=== PATIENT | male | born 1945 | race Caucasian/White ===

== ENCOUNTER 2018-01-25 06:37 | Day surgery (SDC) | payer MEDICARE ==
[2018-01-25] VITALS (11 sets, daily range): BP systolic 117–172; BP diastolic 64–98
[~2018-01-25] VITALS: Ht 167.6 cm; Wt 72.6 kg
[2018-01-25] MEDS ORDERED: normal saline 1000ml 1,000 ML IV PRN (06:55)
[2018-01-25] MEDS ORDERED: LIDOcaine 1% (10mg/ml) 2ml vial ONE (07:16)
[2018-01-25 07:42] LABS: BASOPHILS % (AUTO) 0.7 % (0-1); EOSINOPHILS # (AUTO) 0.3 X10'3 (0-0.9); EOSINOPHILS % (AUTO) 4.2 % (0-6); HEMATOCRIT 45.3 % (42.0-52.0); LYMPHOCYTES # (AUTO) 1.6 X10'3 (1.1-4.8); LYMPHOCYTES % (AUTO) 23.8 % (21-51); MEAN CORPUSCULAR HEMOGLOBIN 29.4 PG (27.0-31.0); MEAN CORPUSCULAR HGB CONC 33.1 % (33.0-36.5); MEAN CORPUSCULAR VOLUME 88.8 FL (78-98); MEAN PLATELET VOLUME 8.5 FL (7.4-10.4); MONOCYTES # (AUTO) 0.4 X10'3 (0-0.9); MONOCYTES % (AUTO) 6.3 % (2-12); NEUTROPHILS # (AUTO) 4.4 X10'3 (1.8-7.7); PLATELET COUNT 258 X10'3 (140-440); RED BLOOD COUNT 5.09 X10'6 (4.70-6.10); RED CELL DISTRIBUTION WIDTH 13.6 % (11.5-14.5); WHITE BLOOD COUNT 6.7 X10'3 (4.5-11.0)
[2018-01-25] MEDS ORDERED: CLOP75TA15 PO (08:07)
[2018-01-25] MEDS ORDERED: ASPI81TA30 PO (08:07)
[2018-01-25] MEDS ORDERED: CARV-50 PO (08:07)
[2018-01-25] MEDS ORDERED: MULT-38 PO (08:07)
[2018-01-25] MEDS ORDERED: [UNRECOGNIZED DRUG - REMARK] (08:07)
[2018-01-25 08:20] LABS: PROTHROMBIN TIME 10.2 SECONDS (9.0-12.0)
[2018-01-25] MEDS ORDERED: iohexol 300mg/ml 100ml inj. ONE (08:26)
[2018-01-25] MEDS ORDERED: heparin 1,000 UNITS/NS 500ml 500 ML ONE (08:26)
[2018-01-25] MEDS ORDERED: midazolam 2 mg/2 ml injection ONE (08:26)
[2018-01-25] MEDS ORDERED: fentaNYL/PF 50MCG/1 ML 2ML syringe ONE (08:26)
[2018-01-25] MEDS ORDERED: LIDOcaine 1%/PF 5ML 10 MG/ML VIAL ONE (08:26)
[2018-01-25 09:02] LABS: ALBUMIN 4.4 G/DL (3.4-5.0); ANION GAP 10 (8-16); BLOOD UREA NITROGEN 14 MG/DL (7-18); BUN/CREATININE RATIO 13.5 (5.4-32.0); CALCIUM 9.6 MG/DL (8.5-10.1); CHLORIDE 102 MMOL/L (99-107); CREATININE 1.04 MG/DL (0.60-1.10); GLUCOSE 112 MG/DL (70-104); POTASSIUM 4.1 MMOL/L (3.5-5.1); SODIUM 140 MMOL/L (135-145); TOTAL CARBON DIOXIDE 28.4 MMOL/L (24-32); eGFR 70 ML/MIN
[2018-01-25] MEDS ORDERED: normal saline 1000ml 1,000 ML IV SCH (09:51)
[2018-01-25] MEDS ORDERED: pneumococcal 23-VAL P-sac vacc 25 mcg/0.5ml vial IMVAC ONE (15:20)
== END 2018-01-25 14:20 | disposition home or self-care (01) ==
LOC: SSTAY O 06:37
PROVIDERS: ATTEND Radiology Diagnostic Radiology
DX: I74.5 Embolism and thrombosis of iliac artery (principal); I70.293 Other atherosclerosis of native arteries of extremities, bilateral legs; I25.810 Atherosclerosis of coronary artery bypass graft(s) without angina pectoris; Z95.5 Presence of coronary angioplasty implant and graft; Z95.828 Presence of other vascular implants and grafts; Z87.891 Personal history of nicotine dependence; Z95.1 Presence of aortocoronary bypass graft; Z79.01 Long term (current) use of anticoagulants; Z79.82 Long term (current) use of aspirin; Z79.899 Other long term (current) drug therapy; Z98.890 Other specified postprocedural states
CPT/HCPCS: 36415; 37221; 80048; 85025; 85610; 99152; 99153; C1876; J1644; J2001; J2250; J3010; J3490; J7030; Q9967; A6219; C1725; C1760; C1769; C1894

== ENCOUNTER 2018-03-07 08:59 | Inpatient (IN) | payer MEDICARE | END 2018-03-08 17:10 | disposition home or self-care (01) | LOC: PAS IN 08:59 → MED 3N 03-08 14:23 → CICU 2S 15:35 | PROC: 041 Lower Arteries, Bypass (ICD-10-PCS; principal; 2018-03-07 11:56) | PROC: 04CL0ZZ Extirpation of Matter from Left Femoral Artery, Open Approach (ICD-10-PCS; 2018-03-07 11:56) | DX: I70.213 Atherosclerosis of native arteries of extremities with intermittent claudication, bilateral legs (principal) ==

== ENCOUNTER 2018-09-06 12:53 | Outpatient (CLI) | payer MEDICARE ==
[~2018-09-06 12:53] MED LIST: ASPI81TA30 PO; CARV3.12 PO; CHOL10002 PO; CLOP75TA15 PO; PANT-47 PO
== END 2018-09-06 23:59 | disposition home or self-care (01) ==
LOC: VAS 12:53
PROVIDERS: ATTEND Surgery
DX: I70.293 Other atherosclerosis of native arteries of extremities, bilateral legs (principal); Z87.891 Personal history of nicotine dependence; Z95.820 Peripheral vascular angioplasty status with implants and grafts
CPT/HCPCS: 93922; 93925

== ENCOUNTER 2019-02-01 08:17 | Outpatient (CLI) | payer MEDICARE | END 2019-02-01 23:59 | disposition home or self-care (01) | LOC: VAS 08:17 | PROVIDERS: ATTEND Surgery | DX: I73.89 Other specified peripheral vascular diseases (principal); Z79.82 Long term (current) use of aspirin; Z87.891 Personal history of nicotine dependence; Z95.1 Presence of aortocoronary bypass graft | CPT/HCPCS: 93922; 93925 ==

== ENCOUNTER 2019-04-04 07:43 | Outpatient (CLI) | payer MEDICARE ==
[2019-04-04 09:01] LABS: BASOPHILS % (AUTO) 0.8 % (0-1); EOSINOPHILS # (AUTO) 0.2 X10'3 (0-0.9); EOSINOPHILS % (AUTO) 2.7 % (0-6); HEMATOCRIT 42.4 % (42.0-52.0); HEMOGLOBIN 14.4 g/dl (14.0-17.9); LYMPHOCYTES # (AUTO) 1.6 X10'3 (1.1-4.8); LYMPHOCYTES % (AUTO) 26.4 % (21-51); MEAN CORPUSCULAR HEMOGLOBIN 29.6 PG (27.0-31.0); MEAN CORPUSCULAR VOLUME 87.1 FL (78-98); MEAN PLATELET VOLUME 8.7 FL (7.4-10.4); MONOCYTES # (AUTO) 0.4 X10'3 (0-0.9); MONOCYTES % (AUTO) 6.7 % (2-12); NEUTROPHILS # (AUTO) 3.8 X10'3 (1.8-7.7); NEUTROPHILS % (AUTO) 63.4 % (42-75); PLATELET COUNT 232 X10'3 (140-440); RED BLOOD COUNT 4.86 X10'6 (4.70-6.10); RED CELL DISTRIBUTION WIDTH 13.8 % (11.5-14.5); WHITE BLOOD COUNT 5.9 X10'3 (4.5-11.0)
[2019-04-04 09:21] LABS: ALANINE AMINOTRANSFERASE 46 U/L (12-78); ALBUMIN 4.2 G/DL (3.4-5.0); ALBUMIN/GLOBULIN RATIO 1.2 (1.1-1.5); ALKALINE PHOSPHATASE 66 IU/L (46-116); ANION GAP 6 (8-16); ASPARTATE AMINO TRANSFERASE 24 U/L (10-37); BILIRUBIN,TOTAL 0.4 MG/DL (0.1-1.0); BLOOD UREA NITROGEN 26 MG/DL (7-18); CALCIUM 9.4 MG/DL (8.5-10.1); CHLORIDE 107 MMOL/L (99-107); CHOL/HDL RATIO 4.7 (0.00-4.99); CHOLESTEROL 224 MG/DL (0-200); CREATININE 1.04 MG/DL (0.60-1.10); GLUCOSE 112 MG/DL (70-104); HDL CHOLESTEROL 48 MG/DL (35-60); LDL CHOLESTEROL 159 MG/DL (50-100); MAGNESIUM 1.9 MG/DL (1.5-2.4); POTASSIUM 4.3 MMOL/L (3.5-5.1); SODIUM 143 MMOL/L (135-145); TOTAL CARBON DIOXIDE 30.3 MMOL/L (24-32); TOTAL PROTEIN 7.7 G/DL (6.4-8.2); TRIGLYCERIDES 72 MG/DL (20-135); eGFR 70 ML/MIN
== END 2019-04-04 23:59 | disposition home or self-care (01) ==
LOC: LAB 07:43
DX: E78.5 Hyperlipidemia, unspecified (principal); I25.10 Atherosclerotic heart disease of native coronary artery without angina pectoris; I73.9 Peripheral vascular disease, unspecified; Z79.899 Other long term (current) drug therapy
CPT/HCPCS: 36415; 80053; 80061; 82306; 83036; 83735; 84439; 84443; 85025

== ENCOUNTER 2019-08-05 08:12 | Outpatient (CLI) | payer MEDICARE | END 2019-08-05 23:59 | disposition home or self-care (01) | LOC: VAS 08:12 | PROVIDERS: ATTEND Surgery | DX: I73.9 Peripheral vascular disease, unspecified (principal); I70.201 Unspecified atherosclerosis of native arteries of extremities, right leg | CPT/HCPCS: 93922; 93925 ==

== ENCOUNTER 2019-10-30 08:27 | Inpatient (IN) | payer MEDICARE ==
[2019-10-23 14:55] LABS: BASOPHILS # (AUTO) 0.1 X10'3 (0-0.2); BASOPHILS % (AUTO) 1.1 % (0-1); EOSINOPHILS # (AUTO) 0.4 X10'3 (0-0.9); LYMPHOCYTES # (AUTO) 1.6 X10'3 (1.1-4.8); LYMPHOCYTES % (AUTO) 24.7 % (21-51); MEAN CORPUSCULAR HEMOGLOBIN 29.2 PG (27.0-31.0); MEAN CORPUSCULAR HGB CONC 33.3 g/dL (33.0-36.5); MEAN CORPUSCULAR VOLUME 87.7 FL (78-98); MEAN PLATELET VOLUME 9.1 FL (7.4-10.4); MONOCYTES # (AUTO) 0.5 X10'3 (0-0.9); MONOCYTES % (AUTO) 7.5 % (2-12); NEUTROPHILS # (AUTO) 3.9 X10'3 (1.8-7.7); NEUTROPHILS % (AUTO) 60.7 % (42-75); PRE OP HEMATOCRIT 41.7 % (42.0-52.0); PRE OP HEMOGLOBIN 13.9 g/dL (14.0-17.9); PRE OP PLATELET COUNT 214 X10'3 (140-440); RED BLOOD COUNT 4.75 X10'6 (4.70-6.10)
[2019-10-23 14:56] LABS: CLARITY,URINE CLEAR (Clear); COLOR,URINE YELLOW (Yellow); GLUCOSE, URINE NEGATIVE (Neg); KETONES,URINE NEGATIVE (Neg); LEUKOCYTE ESTERASE ,URINE NEGATIVE (Neg); NITRITES, URINE NEGATIVE (Neg); OCCULT BLOOD,URINE SMALL (Neg); PH,URINE 5.5 (4.8-8.0); PROTEIN,URINE NEGATIVE (Neg); UROBILINOGEN,URINE 0.2 E.U/dL (0.2-1.0)
[2019-10-23 15:03] LABS: PRE OP PROTIME 10.8 SECONDS (9.0-12.0)
[2019-10-23 15:05] LABS: UA COLLECTION TYPE CLN CATCH MIDSTREAM
[2019-10-23 15:06] LABS: ALBUMIN 3.9 G/DL (3.4-5.0); ALBUMIN/GLOBULIN RATIO 1.1 (1.1-1.5); ALKALINE PHOSPHATASE 62 IU/L (46-116); BLOOD UREA NITROGEN 17 MG/DL (7-18); BUN/CREATININE RATIO 17.9 (5.4-32.0); CALCIUM 9.1 MG/DL (8.5-10.1); CHLORIDE 105 MMOL/L (99-107); CREATININE 0.95 MG/DL (0.60-1.10); PRE OP ALT 25 U/L (30-65); PRE OP ANION GAP 6 (8-16); PRE OP AST 17 U/L (10-37); PRE OP BILIRUB, TOTAL 0.2 MG/DL (0.0-1.0); PRE OP GLUCOSE 87 MG/DL (70-104); PRE OP POTASSIUM 3.8 MMOL/L (3.4-5.1); PRE OP SODIUM 140 MMOL/L (135-145); TOTAL CARBON DIOXIDE 28.7 MMOL/L (24-32); TOTAL PROTEIN 7.4 G/DL (6.4-8.2); eGFR 78 ML/MIN
[2019-10-23 15:07] LABS: RBC,URINE 0-2 /HPF (0-2); SQUAMOUS EPITHELIAL CELL,UR FEW /LPF (FEW); WBC,URINE NONE SEEN /HPF (0-4)
[2019-10-23 15:08] LABS: BACTERIA,URINE NONE SEEN /HPF (Neg)
[2019-10-30] VITALS (20 sets, daily range): BP systolic 107–151; BP diastolic 56–82
[~2019-10-30] VITALS: Ht 170.2 cm; Wt 70.3 kg
[~2019-10-30 08:27] MED LIST changes: +DOCUMENT DATE & TIME OF BETA-BLOCKER PO ONE; +ESOM40CA43 PO; -PANT-47 PO; +cefazolin/dext.iso 2gm/50ml 50 ML IV ONE; +famotidine 20mg tablet PO ONE
[2019-10-30] MEDS ORDERED: LIDOcaine 1% (10mg/ml) 2ml vial ONE ×2 (09:08→12:01)
[2019-10-30] MEDS: ringers solution, lacted 1,000 ML IV SCH ×2 (09:13→17:10)
--- NOTE | 2019-10-30 09:30 | NUR ---
COVID SCREEN NEGATIVE, PT HAS NO COVID SYMPTOMS.
[2019-10-30] MEDS ORDERED: ringers solution, lacted 1,000 ML IV SCH (10:56)
[2019-10-30] MEDS ORDERED: morphine 2 MG/ML inj. syringe IV PRN (11:00)
[2019-10-30] MEDS ORDERED: meperidine/PF 25mg/ml syringe IV PRN ×3 (11:00)
[2019-10-30] MEDS ORDERED: morphine 4 MG/ML inj SYRINge IV PRN (11:00)
[2019-10-30] MEDS ORDERED: proCHLORperazine 10 MG/2 ml inj IV PRN (11:00)
[2019-10-30] MEDS ORDERED: ondansetron/PF 4mg/2ml inj IV PRN ×3 (11:00→14:45)
[2019-10-30] MEDS ORDERED: heparin 10,000 units/1 ML INJ ONE (12:01)
[2019-10-30] MEDS ORDERED: fentaNYL/PF 50MCG/1 ML 2ML syringe ONE (12:45)
[2019-10-30] MEDS ORDERED: MIDAZolam 5mg/5ml vial ONE (12:46)
[2019-10-30] MEDS ORDERED: neostigmine methylsulfate 1 MG/ML 10ml vial ONE (12:52)
[2019-10-30] MEDS ORDERED: morphine /PF 1mg/ml 10ml inj. ONE (13:01)
[2019-10-30] MEDS ORDERED: propofol inj 20 ML IV ONE (13:20)
[2019-10-30] MEDS ORDERED: albumin (Human) 5% 250ml 250 ML IV ONE (14:05)
[2019-10-30] MEDS ORDERED: LIDOcaine 1%/PF 5ML 10 MG/ML VIAL ONE (14:08)
[2019-10-30] MEDS ORDERED: heparin 1,000unit/ml 10ml vial 10 ML ONE (14:08)
[2019-10-30] MEDS ORDERED: naloxone 2mg/2ml inj 1.4 MG in normal saline 500ml IV soln 500 ML IV PRN (14:32)
[2019-10-30] MEDS ORDERED: diphenhydrAMINE 50 mg/ml inj IV PRN (14:35)
[2019-10-30] MEDS ORDERED: HYDROcodone/acetaminophen 10/325mg tab PO PRN (14:45)
--- NOTE | 2019-10-30 14:47 | NUR ---
Received from OR via ORTHO BED , accompanied by Anesthesiologist CHANA and report given by Anesthesiolgist. PATIENT WITH RIGHT INGUINAL DRESSING THAT IS CDI. VSS. DENIES PAIN. SPINAL SENSATION LEVEL IS AT T12-L1 AREA. DENIES PAIN. + CAP REFILL AND DOPPLER PULSE FOR DP. 20 G PIV IN RIGHT UE RUNNIG LR AT 100. ART LINE IN LEFT UE WELL.' Addendum: 10/30/19 at 1524 by Lucien Thomas RN, RN Amended: Links added.
--- NOTE | 2019-10-30 16:07 | NUR ---
PATIENT TAKEN TO WITH ALL BELONGINGS AND HOOKED UP TO MONITORS IN ROOM AND REPORT GIVEN TO RN WHO HAS TAKEN OVER PATIENT CARE. KAMI WILKES PRESENT TO ASSESS AND ASSIST WITH 2 PERSON DEPENDENT ASSIST WITH SEVERO JAMES. DRESSING CDI. Addendum: 10/30/19 at 1622 by Lucien Thomas RN, RN Amended: Links added.
[2019-10-30] MEDS: ceFAZolin 1GM/D5W- ADD-VANTAGE 50 ML IV SCH (17:14)
--- NOTE | 2019-10-30 18:56 | NUR ---
Problems reprioritized. Patient report given, questions answered & plan of care reviewed with Cheryl Luna RN.
--- NOTE | 2019-10-30 18:57 | NUR ---
Patient in room [facility]. I have received report from CHUNG MCCLURE and had the opportunity to ask questions and assume patient care.
[2019-10-31] VITALS: BP 130/62
[2019-10-31] MEDS: ceFAZolin 1GM/D5W- ADD-VANTAGE 50 ML IV SCH ×2 (00:28→08:00)
--- NOTE | 2019-10-31 06:30 | NUR ---
Problems reprioritized. Patient report given, questions answered & plan of care reviewed with CHUNG MCCLURE.
[2019-10-31 07:00] VITALS: BP 114/70
[2019-10-31] MEDS ORDERED: pantoprazole 40mg Tablet.DR PO SCH (07:30)
[2019-10-31] MEDS ORDERED: carVEDilol 3.125mg tablet PO SCH (08:00)
[2019-10-31] MEDS ORDERED: vitamin D (cholecalciferol) 1,000 unit tablet PO SCH (08:00)
[2019-10-31] MEDS ORDERED: aspirin 81mg tablet.DR PO SCH (08:00)
[2019-10-31] MEDS ORDERED: clopidogrel 75mg tablet PO SCH (08:00)
--- NOTE | 2019-10-31 09:33 | NUR ---
Dc'd Oliva catheter per MD orders, Patient tolerated well
[2019-10-31 11:00] VITALS: BP 120/64
--- NOTE | 2019-10-31 15:30 | NUR ---
Patients discharge instructions reviewed with patient and patient verbalized understanding. Patients IV Dc'd cannula intact. Sent patient with extra dressings. All questions answered. Patient states he has all his belongings taken Via wheelchair by PCT Ghada waiting in vehicle.
--- NOTE | 2019-11-04 15:24 | NUR ---
Case Management DC follow up: s/p: R Femp pop bypass. Pt spouse is an RN, Reports pt is: "doing well" Denies for pt: Acute/continuous CP, emergent SOB, resp distress, orthopnea, dyspnea, N/V, weakness, vertigo, syncope episodes, orthostatic hypotension, RAMESH, blurry vision, s/s stroke/FAST, dysphagia, bladder pain, dysuria, polyuria, hematuria, retention, abd pain/distention, hematochezia, melena, fever, chills. Verbalizes understanding of Rx, why prescribed; continues/resumes current Rx as ordered, denies ase r/t polypharmacy. Verbalizes compliance w/aftercare. verbalizes understanding of s/s that warrant 9-11/ER visit for further evaluation. Pt acknowledges need to schedule/confirm/keep follow up appt w/PCP, will call to schedule; Dr Alcazar will call to confirm. Needs met, questions/concerns addressed at DC; No further questions/concerns r/t recent hospital stay and/or DC status at this time.
== END 2019-10-31 15:25 | disposition home or self-care (01) | DRG 254 ==
LOC: PAS 08:27 → SUR 3N 08:30 → EDSTATUS 11:00 → SUR 3N 14:41 → PAS 10-31 15:25
PROVIDERS: ADMIT Surgery; ATTEND Surgery
PROC: 04CK0ZZ Extirpation of Matter from Right Femoral Artery, Open Approach (ICD-10-PCS; principal; 2019-10-30 12:52)
DX: I70.211 Atherosclerosis of native arteries of extremities with intermittent claudication, right leg (principal); M79.661 Pain in right lower leg; Z20.828 Contact with and (suspected) exposure to other viral communicable diseases; Z79.899 Other long term (current) drug therapy; Z79.01 Long term (current) use of anticoagulants; Z87.891 Personal history of nicotine dependence; Z72.89 Other problems related to lifestyle; I25.10 Atherosclerotic heart disease of native coronary artery without angina pectoris; Z95.1 Presence of aortocoronary bypass graft; Z79.82 Long term (current) use of aspirin
CPT/HCPCS: 36415; 80053; 81001; 82948; 85025; 85610; 85730; 86885; 86900; 86901; 86920; 87081; 87635; A4618; A6258; A7000; C1757; C1758; G0378; J0690; J1644; J2001; J2250; J2270; J2405; J2704; J2710; J3010; J7040; J7120; P9045

== ENCOUNTER 2020-04-09 08:55 | Outpatient (CLI) | payer MEDICARE ==
[~2020-04-09 08:55] MED LIST changes: -DOCUMENT DATE & TIME OF BETA-BLOCKER PO ONE; -cefazolin/dext.iso 2gm/50ml 50 ML IV ONE; -famotidine 20mg tablet PO ONE
== END 2020-04-09 23:59 | disposition home or self-care (01) ==
LOC: VAS 08:55
PROVIDERS: ATTEND Surgery
DX: I70.203 Unspecified atherosclerosis of native arteries of extremities, bilateral legs (principal)
CPT/HCPCS: 93922; 93925

== ENCOUNTER 2020-10-19 08:30 | Outpatient (CLI) | payer MEDICARE | END 2020-10-19 23:59 | disposition home or self-care (01) | LOC: VAS 08:30 | PROVIDERS: ATTEND Surgery | DX: I73.9 Peripheral vascular disease, unspecified (principal); I65.23 Occlusion and stenosis of bilateral carotid arteries | CPT/HCPCS: 93880; 93922; 93925 ==

== ENCOUNTER 2020-11-02 13:05 | Emergency (ER) | payer MEDICARE ==
[~2020-11-02] VITALS: Ht 167.6 cm; Wt 68.2 kg
[2020-11-02] MEDS ORDERED: CASIRIVIMAB/IMDEVIMAB inject. 10 ML in normal saline 100ml IV soln 100 ML IV ONE (13:25)
[2020-11-02 17:17] VITALS: BP 116/70
== END 2020-11-02 16:41 | disposition home or self-care (01) ==
LOC: ER 13:06
DX: U07.1 COVID-19 (principal); R50.9 Fever, unspecified; I10 Essential (primary) hypertension; I73.9 Peripheral vascular disease, unspecified; Z87.891 Personal history of nicotine dependence; Z79.82 Long term (current) use of aspirin; Z79.899 Other long term (current) drug therapy
CPT/HCPCS: 99283; M0243; Q0244

== ENCOUNTER 2021-10-11 12:27 | Outpatient (CLI) | payer MEDICARE | END 2021-10-11 23:59 | disposition home or self-care (01) | LOC: VAS 12:27 | PROVIDERS: ATTEND Surgery | DX: I65.23 Occlusion and stenosis of bilateral carotid arteries (principal); I70.203 Unspecified atherosclerosis of native arteries of extremities, bilateral legs | CPT/HCPCS: 93880; 93925 ==

== ENCOUNTER 2022-04-13 08:33 | Outpatient (CLI) | payer MEDICARE | END 2022-04-13 23:59 | disposition home or self-care (01) | LOC: VAS 08:33 | PROVIDERS: ATTEND Surgery | DX: I70.203 Unspecified atherosclerosis of native arteries of extremities, bilateral legs (principal); I65.29 Occlusion and stenosis of unspecified carotid artery | CPT/HCPCS: 93880; 93925 ==

== ENCOUNTER 2022-06-22 07:30 | Emergency (ER) | payer MEDICARE ==
[~2022-06-22] VITALS: Ht 170.2 cm; Wt 70.9 kg
[2022-06-22 07:53] LABS: BASOPHILS # (AUTO) 0.1 X10'3 (0-0.2); EOSINOPHILS # (AUTO) 0.2 X10'3 (0-0.9); EOSINOPHILS % (AUTO) 3.1 % (0-6); HEMATOCRIT 41.3 % (42.0-52.0); HEMOGLOBIN 13.7 g/dl (14.0-17.9); LYMPHOCYTES # (AUTO) 1.9 X10'3 (1.1-4.8); LYMPHOCYTES % (AUTO) 30.8 % (21-51); MEAN CORPUSCULAR HEMOGLOBIN 29.4 PG (27.0-31.0); MEAN CORPUSCULAR HGB CONC 33.2 g/dL (33.0-36.5); MEAN CORPUSCULAR VOLUME 88.5 FL (78-98); MEAN PLATELET VOLUME 8.7 FL (7.4-10.4); MONOCYTES # (AUTO) 0.4 X10'3 (0-0.9); MONOCYTES % (AUTO) 7.3 % (2-12); NEUTROPHILS # (AUTO) 3.6 X10'3 (1.8-7.7); NEUTROPHILS % (AUTO) 57.8 % (42-75); PLATELET COUNT 208 X10'3 (140-440); RED BLOOD COUNT 4.66 X10'6 (4.70-6.10); RED CELL DISTRIBUTION WIDTH 13.4 % (11.5-14.5); WHITE BLOOD COUNT 6.2 X10'3 (4.5-11.0)
[2022-06-22 07:59] LABS: APTT 26 SECONDS (22-32)
[2022-06-22 08:02] LABS: ALANINE AMINOTRANSFERASE 28 U/L (12-78); ALBUMIN 3.9 G/DL (3.4-5.0); ALBUMIN/GLOBULIN RATIO 1.2 (1.1-1.5); ALKALINE PHOSPHATASE 60 IU/L (46-116); ANION GAP 8 (8-16); ASPARTATE AMINO TRANSFERASE 26 U/L (10-37); BILIRUBIN,TOTAL 0.3 MG/DL (0.1-1.0); BLOOD UREA NITROGEN 20 MG/DL (7-18); BUN/CREATININE RATIO 19.8 (10.0-20.0); CALCIUM 9.2 MG/DL (8.5-10.1); CHLORIDE 102 MMOL/L (99-107); CREATININE 1.01 MG/DL (0.60-1.10); GLUCOSE 137 MG/DL (70-104); POTASSIUM 3.8 MMOL/L (3.5-5.1); SODIUM 138 MMOL/L (135-145); TOTAL CARBON DIOXIDE 27.8 MMOL/L (24-32); TOTAL PROTEIN 7.2 G/DL (6.4-8.2); eGFR 72 ML/MIN
[2022-06-22 08:08] LABS: MAGNESIUM 1.9 MG/DL (1.5-2.4)
[2022-06-22 10:41] VITALS: BP 149/84
[2022-06-22] MEDS ORDERED: NITR0.4T51 SL (11:30)
== END 2022-06-22 10:49 | disposition home or self-care (01) ==
LOC: ER 07:30
DX: R07.89 Other chest pain (principal); I10 Essential (primary) hypertension; Z79.82 Long term (current) use of aspirin; Z79.899 Other long term (current) drug therapy; Z95.1 Presence of aortocoronary bypass graft
CPT/HCPCS: 36415; 71045; 80053; 83735; 83880; 84484; 85025; 85610; 85730; 93005; 99285

== ENCOUNTER 2022-07-12 07:51 | Day surgery (SDC) | payer MEDICARE ==
[2022-07-12] VITALS (7 sets, daily range): BP systolic 124–157; BP diastolic 62–93
[~2022-07-12] VITALS: Ht 170.2 cm; Wt 70.8 kg
[~2022-07-12 07:51] MED LIST changes: +NITR0.4T51 SL
[2022-07-12 08:25] LABS: BASOPHILS # (AUTO) 0.1 X10'3 (0-0.2); EOSINOPHILS # (AUTO) 0.2 X10'3 (0-0.9); EOSINOPHILS % (AUTO) 3.9 % (0-6); HEMOGLOBIN 13.6 g/dl (14.0-17.9); LYMPHOCYTES # (AUTO) 1.4 X10'3 (1.1-4.8); LYMPHOCYTES % (AUTO) 25.7 % (21-51); MEAN CORPUSCULAR HEMOGLOBIN 29.7 PG (27.0-31.0); MEAN CORPUSCULAR HGB CONC 33.9 g/dL (33.0-36.5); MEAN CORPUSCULAR VOLUME 87.5 FL (78-98); MEAN PLATELET VOLUME 8.2 FL (7.4-10.4); MONOCYTES # (AUTO) 0.4 X10'3 (0-0.9); MONOCYTES % (AUTO) 6.9 % (2-12); NEUTROPHILS # (AUTO) 3.5 X10'3 (1.8-7.7); NEUTROPHILS % (AUTO) 62.5 % (42-75); PLATELET COUNT 215 X10'3 (140-440); RED BLOOD COUNT 4.58 X10'6 (4.70-6.10); RED CELL DISTRIBUTION WIDTH 13.2 % (11.5-14.5); WHITE BLOOD COUNT 5.6 X10'3 (4.5-11.0)
[2022-07-12 08:39] LABS: ALBUMIN 3.8 G/DL (3.4-5.0); ANION GAP 6 (8-16); BLOOD UREA NITROGEN 19 MG/DL (7-18); BUN/CREATININE RATIO 18.4 (10.0-20.0); CALCIUM 9.5 MG/DL (8.5-10.1); CHLORIDE 104 MMOL/L (99-107); CREATININE 1.03 MG/DL (0.60-1.10); GLUCOSE 103 MG/DL (70-104); SODIUM 140 MMOL/L (135-145); TOTAL CARBON DIOXIDE 29.8 MMOL/L (24-32); eGFR 70 ML/MIN
[2022-07-12 08:44] LABS: APTT 26 SECONDS (22-32)
[2022-07-12] MEDS ORDERED: nitroGLYCERIN-Tridil 50MG/D5W 250 ML IV ONE (15:29)
[2022-07-12] MEDS ORDERED: verapamil 2.5 mg/ml inj IV ONE (15:29)
[2022-07-12] MEDS ORDERED: LIDOcaine 1% (10mg/ml) 2ml vial ONE (15:29)
[2022-07-12] MEDS ORDERED: fentaNYL/PF 50MCG/1 ML 2ML syringe ONE (15:30)
[2022-07-12] MEDS ORDERED: iohexol 350MG/ML 100ml bottle IV ONE ×2 (15:30→17:09)
[2022-07-12] MEDS ORDERED: iohexol 350 MG/ML 50ML vial IV ONE (15:30)
[2022-07-12] MEDS ORDERED: heparin 1,000unit/ml 10ml vial 10 ML ONE (15:30)
[2022-07-12] MEDS ORDERED: midazolam 1 mg/ML 2ml injection ONE (15:30)
[2022-07-12] MEDS ORDERED: diphenhydrAMINE 25mg capsule PO PRN (15:35)
[2022-07-12] MEDS ORDERED: normal saline 1,000 ML IV SCH (15:35)
[2022-07-12] MEDS ORDERED: LORazepam 0.5 MG tablet PO PRN (15:35)
[2022-07-12] MEDS ORDERED: METO-395 PO (15:36)
[2022-07-12] MEDS ORDERED: OMEP20CA16 PO (15:36)
[2022-07-12] MEDS ORDERED: ASPI-845 PO (15:36)
[2022-07-12] MEDS ORDERED: ISOS30TA84 PO (15:41)
[2022-07-12] MEDS ORDERED: normal saline 1000ml 1,000 ML IV SCH (18:20)
[2022-07-20] MEDS ORDERED: NITR0.4T48 SL (16:52)
[2022-07-21] MEDS ORDERED: EVOL140S2 SQ (11:57)
[2022-07-26] MEDS ORDERED: HYDR-3972 PO (11:26)
[2022-07-26] MEDS ORDERED: FLO0.4C PO (11:26)
== END 2022-07-12 20:00 | disposition home or self-care (01) ==
LOC: SSTAY O 07:51
PROVIDERS: ATTEND Internal Medicine Cardiovascular Disease
DX: I25.810 Atherosclerosis of coronary artery bypass graft(s) without angina pectoris (principal); I10 Essential (primary) hypertension; E78.5 Hyperlipidemia, unspecified; J44.9 Chronic obstructive pulmonary disease, unspecified; Z79.01 Long term (current) use of anticoagulants; Z79.899 Other long term (current) drug therapy; Z79.82 Long term (current) use of aspirin; Z87.891 Personal history of nicotine dependence; Z82.49 Family history of ischemic heart disease and other diseases of the circulatory system
CPT/HCPCS: 36415; 76937; 80048; 85025; 85610; 85730; 93005; 93459; 93567; 99152; 99153; J1644; J2250; J3010; J3490; J7030; Q0163; Q9967; A6258; A6402; C1725; C1894

== ENCOUNTER 2022-07-14 07:46 | Outpatient (CLI) | payer MEDICARE ==
[~2022-07-14 07:46] MED LIST changes: +ASPI-845 PO; -ASPI81TA30 PO; -CARV3.12 PO; -ESOM40CA43 PO; +ISOS30TA84 PO; +METO-395 PO; -NITR0.4T51 SL; +OMEP20CA16 PO
[2022-07-14 08:26] LABS: CHOL/HDL RATIO 4.6 (0.00-4.99); CHOLESTEROL 181 MG/DL (0-200); HDL CHOLESTEROL 39 MG/DL (35-60); LDL CHOLESTEROL 114 MG/DL (50-100); TRIGLYCERIDES 74 MG/DL (20-135)
== END 2022-07-14 23:59 | disposition home or self-care (01) ==
LOC: LAB 07:46
PROVIDERS: ATTEND Internal Medicine Cardiovascular Disease
DX: E78.5 Hyperlipidemia, unspecified (principal)
CPT/HCPCS: 36415; 80061

== ENCOUNTER 2022-12-12 07:55 | Outpatient (CLI) | payer MEDICARE ==
[~2022-12-12 07:55] MED LIST changes: +ASPI-1071 PO; -ASPI-845 PO; +CLOP-32 PO; -CLOP75TA15 PO; +EVOL140S2 SQ; +EZET10TA48 PO; +FLO0.4C PO; -ISOS30TA84 PO
== END 2022-12-12 23:59 | disposition home or self-care (01) ==
LOC: VAS 07:55
PROVIDERS: ATTEND Surgery
DX: I73.9 Peripheral vascular disease, unspecified (principal)
CPT/HCPCS: 93922; 93925